=== PATIENT | female | born 1990 | race Hispanic/Latino ===

== ENCOUNTER 2023-01-16 04:51 | Day surgery (SDC) | payer OTHER ==
[2023-01-16 05:14] VITALS: BMI 23.8
[2023-01-16] MEDS ORDERED: hydrALAZINE 20 MG/ML VIAL SLOW IVP PRN (05:29)
[2023-01-16] MEDS ORDERED: Lactated Ringer's 1,000 ML IV SCH (07:30)
== END 2023-01-16 09:20 | disposition home health service (06) ==
LOC: CSHLD/OP 04:51
PROVIDERS: ATTEND Student in an Organized Health Care Education/Training Program
DX: O47.1 False labor at or after 37 completed weeks of gestation (principal); O99.013 Anemia complicating pregnancy, third trimester; D64.9 Anemia, unspecified; Z3A.39 39 weeks gestation of pregnancy; Z79.899 Other long term (current) drug therapy
CPT/HCPCS: 76816